=== PATIENT | male | born 1970 | race Caucasian/White ===

== ENCOUNTER 2020-03-14 23:30 | Inpatient (IN) ==
[2020-03-14] MEDS ORDERED: ASPIRIN 325 MG TABLET ONE (23:32)
[2020-03-14] MEDS ORDERED: HEPARIN 5,000 UNIT/1 ML VIAL ONE (23:32)
[2020-03-14] MEDS ORDERED: NITROGLYCERIN 2% OINT 1 INCH/GM PACK TOP ONE (23:32)
[2020-03-14] MEDS ORDERED: HEPARIN 5,000 UNIT/1 ML VIAL IV ONE (23:37)
[2020-03-14] MEDS ORDERED: NITROGLYCERIN 2% OINT 1 INCH/GM PACK TOP STA (23:37)
[2020-03-14] MEDS ORDERED: ASPIRIN EC 325 MG TABLET PO STA (23:37)
[2020-03-14 23:46] LABS: Basophils # 0.1 10*3/uL (0.0-0.2); Basophils % 0.4 % (0.0-0.8); Eosinophils # 0.2 10*3/uL (0.0-0.87); Eosinophils % 1.3 % (0.00-10.9); Hemoglobin 15.8 GM/DL (14.0-18.0); Immature Granulocytes % 2.8 %; Immature Granulocytes Absolute 0.38 #; Lymphocytes # 3.8 10*3/uL (1.4-4.0); Lymphocytes % 27.8 % (21.2-54.2); Mean Corpuscular HGB Conc 34.3 GM/DL (32-36); Mean Corpuscular Volume 90.6 FL (87-102); Mean Platelet Volume 11.2 FL (9.6-12.0); Monocytes % 3.8 % (1.7-12.7); Neutrophils % 63.9 % (38.7-73.9); Platelet Count 176 T/CUMM (130-400); Red Blood Count 5.08 MC/CUMM (3.8-5.5); Red Cell Distribution Width 12.9 % (9.3-17.3); White Blood Count 13.8 T/CUMM (4-12)
[2020-03-14 23:55] LABS: INR 1.1; PT Patient Result 11.7 SECS (9.8-11.9); Partial Thromboplastin Time 23.3 SECS (23.9-33.8)
[2020-03-15] MEDS ORDERED: MIDAZOLAM 2 MG/2 ML VIAL ONE
[2020-03-15] MEDS ORDERED: LIDOCAINE 1% 20 ML VIAL ONE
[2020-03-15] MEDS ORDERED: fentaNYL 100 MCG/2 ML VIAL ONE (00:01)
[2020-03-15 00:28] LABS: Bilirubin,Total 3.3 MG/DL (0.2-1.0); Calcium 8.6 MG/DL (8.5-10.1); Osmolality,Calculated 278.4 MOS/KG (273-304); Total Protein 7.6 G/DL (6.4-8.3)
[2020-03-15 00:32] LABS: Troponin I 0.564 NG/ML (0.00-0.045)
[2020-03-15] MEDS ORDERED: ONDANSETRON 4 MG/2 ML VIAL IV PRN ×2 (01:21)
[2020-03-15] MEDS ORDERED: MAGNESIUM SULF RIDER 2 GM in PREMIX 1 EACH IV PRN (01:21)
[2020-03-15] MEDS ORDERED: MAGNESIUM SULF RIDER 4 GM in PREMIX 1 EACH IV PRN (01:21)
[2020-03-15] MEDS ORDERED: ACETAMINOPHEN 325 MG TABLET PO PRN ×2 (01:21)
[2020-03-15] MEDS ORDERED: SODIUM CHLORIDE 0.9% 1,000 ML IV SCH (01:24)
[2020-03-15] MEDS ORDERED: POTASSIUM CHLORIDE 20 MEQ/15 ML UDCUP PO ONE (01:49)
[2020-03-15] MEDS ORDERED: fentaNYL 100 MCG/2 ML VIAL IV PRN (02:16)
[2020-03-15 02:35] LABS: Risk Ratio 3.67
[2020-03-15 05:28] LABS: CKMB % 5.5 %
[2020-03-15 05:36] LABS: Troponin I 11.9 NG/ML (0.00-0.045)
[2020-03-15 08:04] LABS: Basophils % 0.1 % (0.0-0.8); Hematocrit 43.2 VOL% (42.0-52.0); Hemoglobin 14.8 GM/DL (14.0-18.0); Immature Granulocytes % 0.7 %; Immature Granulocytes Absolute 0.11 #; Mean Corpuscular HGB Conc 34.3 GM/DL (32-36); Mean Corpuscular Volume 89.4 FL (87-102); Mean Platelet Volume 11.2 FL (9.6-12.0); Neutrophils % 88.2 % (38.7-73.9); Platelet Count 167 T/CUMM (130-400); Red Blood Count 4.83 MC/CUMM (3.8-5.5); Red Cell Distribution Width 13.1 % (9.3-17.3); White Blood Count 16.7 T/CUMM (4-12)
[2020-03-15 08:26] LABS: Albumin 3.8 G/DL (3.4-5.0); Bilirubin,Total 2.8 MG/DL (0.2-1.0); Calcium 8.3 MG/DL (8.5-10.1); Osmolality,Calculated 279.7 MOS/KG (273-304); Total Protein 7.2 G/DL (6.4-8.3)
[2020-03-15] MEDS: PANTOPRAZOLE 40 MG TABLET PO SCH (08:32)
[2020-03-15 08:51] LABS: CKMB % 4.8 %
[2020-03-15 08:54] LABS: Troponin I 12.5 NG/ML (0.00-0.045)
[2020-03-15] MEDS: POTASSIUM CHLORIDE 20 MEQ TABLET PO PRN ×5 (09:37→20:58)
[2020-03-15] MEDS: AMBRISENTAN 10 MG PO SCH ×2 (10:36→20:59)
[2020-03-15 13:19] LABS: Barbiturates Screen,Urine Negative (Negative); Benzodiazepines Screen,Urine Positive (Negative); Cannabinoid Screen,Urine Negative (Negative); Opiate Screen,Urine Positive (Negative); Phencyclidine Screen,Urine Negative (Negative)
[2020-03-15] MEDS: SILDENAFIL 20 MG TABLET PO SCH ×2 (15:32→20:58)
[2020-03-15] MEDS ORDERED: TORSEMIDE 20 MG TABLET PO SCH (21:00)
[2020-03-16 06:44] LABS: Basophils % 0.2 % (0.0-0.8); Eosinophils % 0.3 % (0.00-10.9); Hematocrit 39.5 VOL% (42.0-52.0); Hemoglobin 13.3 GM/DL (14.0-18.0); Immature Granulocytes % 0.4 %; Immature Granulocytes Absolute 0.05 #; Lymphocytes % 16.7 % (21.2-54.2); Mean Corpuscular HGB Conc 33.7 GM/DL (32-36); Mean Corpuscular Volume 92.5 FL (87-102); Mean Platelet Volume 11.4 FL (9.6-12.0); Monocytes % 7.9 % (1.7-12.7); Neutrophils % 74.5 % (38.7-73.9); Platelet Count 125 T/CUMM (130-400); Red Blood Count 4.27 MC/CUMM (3.8-5.5); Red Cell Distribution Width 13.5 % (9.3-17.3); White Blood Count 12.1 T/CUMM (4-12)
[2020-03-16 07:00] LABS: Albumin 3.7 G/DL (3.4-5.0); Bilirubin,Total 2.4 MG/DL (0.2-1.0); Calcium 8.2 MG/DL (8.5-10.1); Osmolality,Calculated 278.5 MOS/KG (273-304); Total Protein 6.8 G/DL (6.4-8.3)
[2020-03-16] MEDS: AMBRISENTAN 10 MG PO SCH (08:04)
[2020-03-16] MEDS: POTASSIUM CHLORIDE 20 MEQ TABLET PO SCH (08:04)
[2020-03-16] MEDS: TORSEMIDE 20 MG TABLET PO SCH ×2 (08:04→20:35)
[2020-03-16] MEDS: PANTOPRAZOLE 40 MG TABLET PO SCH (08:04)
[2020-03-16] MEDS: SILDENAFIL 20 MG TABLET PO SCH ×3 (08:04→20:34)
[2020-03-17 06:30] LABS: Calcium 8.4 MG/DL (8.5-10.1); Osmolality,Calculated 278.5 MOS/KG (273-304)
[2020-03-17] MEDS: TORSEMIDE 20 MG TABLET PO SCH ×2 (09:34→21:44)
[2020-03-17] MEDS: PANTOPRAZOLE 40 MG TABLET PO SCH (09:34)
[2020-03-17] MEDS: POTASSIUM CHLORIDE 20 MEQ TABLET PO SCH ×3 (09:34→21:44)
[2020-03-17] MEDS: AMBRISENTAN 10 MG PO SCH (09:35)
[2020-03-17] MEDS: SILDENAFIL 20 MG TABLET PO SCH ×3 (09:35→21:44)
[2020-03-18 06:36] LABS: Calcium 8.4 MG/DL (8.5-10.1); Osmolality,Calculated 275.5 MOS/KG (273-304)
[2020-03-18] MEDS ORDERED: MAGNESIUM SULF RIDER 2 GM in PREMIX 1 EACH IV ONE (07:01)
[2020-03-18] MEDS ORDERED: POTASSIUM CHLORIDE 20 MEQ TABLET PO ONE (07:01)
[2020-03-18] MEDS: POTASSIUM CHLORIDE 20 MEQ TABLET PO SCH (09:11)
[2020-03-18] MEDS: PANTOPRAZOLE 40 MG TABLET PO SCH (09:11)
[2020-03-18] MEDS: TORSEMIDE 20 MG TABLET PO SCH (09:11)
[2020-03-18] MEDS: AMBRISENTAN 10 MG PO SCH (09:12)
[2020-03-18] MEDS: SILDENAFIL 20 MG TABLET PO SCH (09:12)
[2020-03-18 15:40] VITALS: BP 110/60
== END 2020-03-18 15:45 | disposition hospice, home (50) | DRG 287 ==
LOC: N.ED 23:30 → N.EDINP 23:30 → N.ICU 03-15 00:05 → SUPCPDRO 03-15 01:21 → N.TELEN 03-16 10:53
PROVIDERS: ADMIT Internal Medicine Cardiovascular Disease; ATTEND Internal Medicine Cardiovascular Disease
PROC: CLCCHCL (ICD-10-PCS; 2020-03-15)

== ENCOUNTER 2022-02-01 18:29 | Observation (INO) ==
[2022-02-01 19:06] LABS: Basophils % 0.1 % (0.0-0.8); Eosinophils # 0.2 10*3/uL (0.0-0.87); Eosinophils % 2.2 % (0.00-10.9); Hematocrit 43.4 VOL% (42.0-52.0); Hemoglobin 14.8 GM/DL (14.0-18.0); Immature Granulocytes % 0.3 %; Immature Granulocytes Absolute 0.02 #; Lymphocytes # 1.6 10*3/uL (1.4-4.0); Mean Corpuscular HGB Conc 34.1 GM/DL (32-36); Mean Platelet Volume 10.3 FL (9.6-12.0); Monocytes # 0.6 10*3/uL (0.11-0.8); Monocytes % 7.3 % (1.7-12.7); Neutrophils % 70.1 % (38.7-73.9); Platelet Count 185 T/CUMM (130-400); Red Blood Count 4.82 MC/CUMM (3.8-5.5); White Blood Count 7.9 T/CUMM (4-12)
[2022-02-01] MEDS ORDERED: ACETAMINOPHEN 500 MG TABLET PO STA (19:10)
[2022-02-01 19:30] LABS: Albumin 4.1 G/DL (3.4-5.0); Bilirubin,Total 2.2 MG/DL (0.20-1.00); Calcium 10.4 MG/DL (8.5-10.1); Osmolality,Calculated 280.5 MOS/KG (273-304); Potassium 3.4 MMOL/L (3.5-5.1)
[2022-02-01] MEDS ORDERED: GLUCAGON 1 MG VIAL IM PRN (20:06)
[2022-02-01] MEDS ORDERED: ONDANSETRON 4 MG/2 ML VIAL IV PRN (20:06)
[2022-02-01] MEDS ORDERED: SIMETHICONE CHEW 125 MG TABLET PO PRN (20:06)
[2022-02-01] MEDS ORDERED: ACETAMINOPHEN 325 MG TABLET PO PRN (20:06)
[2022-02-01] MEDS ORDERED: DEXTROSE 10% 250 ML BAG IV PRN (20:19)
[2022-02-01] MEDS ORDERED: POTASSIUM CHLORIDE 20 MEQ TABLET PO STA (20:58)
[2022-02-01] MEDS: DOCUSATE SODIUM 100 MG CAPSULE PO SCH (21:18)
[2022-02-01] MEDS: ENOXAPARIN 40 MG/0.4 ML SYRINGE SUBCUT SCH (21:23)
[2022-02-02 01:50] LABS: Basophils % 0.3 % (0.0-0.8); Eosinophils # 0.1 10*3/uL (0.0-0.87); Eosinophils % 1.5 % (0.00-10.9); Hematocrit 39.5 VOL% (42.0-52.0); Hemoglobin 13.4 GM/DL (14.0-18.0); Immature Granulocytes % 0.1 %; Immature Granulocytes Absolute 0.01 #; Lymphocytes # 2.2 10*3/uL (1.4-4.0); Lymphocytes % 27.9 % (21.2-54.2); Mean Corpuscular HGB Conc 33.9 GM/DL (32-36); Mean Corpuscular Volume 90.8 FL (87-102); Mean Platelet Volume 10.7 FL (9.6-12.0); Monocytes # 0.7 10*3/uL (0.11-0.8); Monocytes % 8.5 % (1.7-12.7); Neutrophils % 61.7 % (38.7-73.9); Platelet Count 174 T/CUMM (130-400); Red Blood Count 4.35 MC/CUMM (3.8-5.5); Red Cell Distribution Width 13.1 % (9.3-17.3); White Blood Count 7.8 T/CUMM (4-12)
[2022-02-02 01:59] LABS: PT Patient Result 10.8 SECS (10.1-12.1); Partial Thromboplastin Time 29.1 SECS (23.7-32.9)
[2022-02-02 02:14] LABS: Calcium 9.7 MG/DL (8.5-10.1); Osmolality,Calculated 280.5 MOS/KG (273-304); Potassium 3.5 MMOL/L (3.5-5.1); Risk Ratio 4.18; Thyroid Stimulating Hormone 5.64 uIU/ml (0.358-3.74); VLDL Cholesterol 39.6 MG/DL
[2022-02-02 07:41] LABS: Barbiturates Screen,Urine Negative (Negative); Benzodiazepines Screen,Urine Negative (Negative); Cannabinoid Screen,Urine Negative (Negative); Opiate Screen,Urine Negative (Negative); Phencyclidine Screen,Urine Negative (Negative)
[2022-02-02] MEDS ORDERED: AMIODARONE INJ 150 MG in DEXTROSE 5% 100 ML IV ONE (08:18)
[2022-02-02] MEDS ORDERED: POTASSIUM CHLORIDE 20 MEQ TABLET PO ONE (08:20)
[2022-02-02] MEDS ORDERED: AMIODARONE INJ 450 MG in DEXTROSE 5% 241 ML IV SCH (08:30)
[2022-02-02] MEDS: DOCUSATE SODIUM 100 MG CAPSULE PO SCH ×2 (09:41→20:49)
[2022-02-02] MEDS: ASPIRIN EC 325 MG TABLET PO SCH (09:41)
[2022-02-02] MEDS: ASCORBIC ACID 500 MG TABLET PO SCH ×2 (09:42→20:49)
[2022-02-02] MEDS: PANTOPRAZOLE 40 MG TABLET PO SCH (09:42)
[2022-02-02] MEDS: AMIODARONE INJ 450 MG in DEXTROSE 5% 241 ML IV SCH (16:47)
[2022-02-02] MEDS: ENOXAPARIN 40 MG/0.4 ML SYRINGE SUBCUT SCH (20:49)
[2022-02-02] MEDS: SILDENAFIL 20 MG TABLET PO SCH (20:58)
[2022-02-03 06:15] LABS: Basophils % 0.3 % (0.0-0.8); Eosinophils # 0.1 10*3/uL (0.0-0.87); Eosinophils % 1.8 % (0.00-10.9); Hematocrit 38.1 VOL% (42.0-52.0); Hemoglobin 12.7 GM/DL (14.0-18.0); Immature Granulocytes % 0.5 %; Immature Granulocytes Absolute 0.03 #; Lymphocytes # 1.8 10*3/uL (1.4-4.0); Lymphocytes % 26.8 % (21.2-54.2); Mean Corpuscular HGB Conc 33.3 GM/DL (32-36); Mean Corpuscular Volume 93.2 FL (87-102); Monocytes # 0.5 10*3/uL (0.11-0.8); Neutrophils % 62.6 % (38.7-73.9); Platelet Count 149 T/CUMM (130-400); Red Blood Count 4.09 MC/CUMM (3.8-5.5); Red Cell Distribution Width 13.3 % (9.3-17.3); White Blood Count 6.5 T/CUMM (4-12)
[2022-02-03 06:35] LABS: Calcium 8.9 MG/DL (8.5-10.1); Osmolality,Calculated 281.1 MOS/KG (273-304); Potassium 3.8 MMOL/L (3.5-5.1)
[2022-02-03] MEDS: AMIODARONE INJ 450 MG in DEXTROSE 5% 241 ML IV SCH (06:45)
[2022-02-03] MEDS ORDERED: AMIODARONE 200 MG TABLET PO SCH (09:00)
[2022-02-03] MEDS ORDERED: AMBRISENTAN 10 MG PO SCH (09:00)
[2022-02-03] MEDS ORDERED: POTASSIUM CHLORIDE 20 MEQ TABLET PO SCH (09:21)
[2022-02-03] MEDS ORDERED: TORSEMIDE 20 MG TABLET PO SCH (09:21)
[2022-02-03] MEDS: SILDENAFIL 20 MG TABLET PO SCH (09:48)
[2022-02-03] MEDS: ASPIRIN EC 325 MG TABLET PO SCH (09:48)
[2022-02-03] MEDS: DOCUSATE SODIUM 100 MG CAPSULE PO SCH (09:48)
[2022-02-03] MEDS: PANTOPRAZOLE 40 MG TABLET PO SCH (09:48)
[2022-02-03] MEDS: ASCORBIC ACID 500 MG TABLET PO SCH (09:48)
[2022-02-03 11:34] VITALS: BP 99/63
== END 2022-02-03 11:46 | disposition home health service (06) ==
LOC: N.EDINP 18:29 → N.ED 18:29 → SUATTDRO 20:06 → N.EDINP 21:22 → N.TELES 22:32
PROVIDERS: ADMIT Hospitalist; ATTEND Internal Medicine Geriatric Medicine

== ENCOUNTER 2022-02-19 22:05 | Inpatient (IN) ==
[2022-02-19] MEDS ORDERED: AMIODARONE INJ 450 MG in DEXTROSE 5% 241 ML IV SCH (23:45)
[2022-02-20 00:29] LABS: Albumin 3.5 G/DL (3.4-5.0); Basophils % 0.2 % (0.0-0.8); Bilirubin,Total 1.6 MG/DL (0.20-1.00); Calcium 9.2 MG/DL (8.5-10.1); Eosinophils # 0.1 10*3/uL (0.0-0.87); Eosinophils % 0.5 % (0.00-10.9); Hematocrit 40.5 VOL% (42.0-52.0); Immature Granulocytes % 0.4 %; Immature Granulocytes Absolute 0.05 #; Lymphocytes # 1.1 10*3/uL (1.4-4.0); Mean Corpuscular HGB Conc 34.6 GM/DL (32-36); Mean Corpuscular Volume 90.4 FL (87-102); Mean Platelet Volume 11.2 FL (9.6-12.0); Monocytes # 0.8 10*3/uL (0.11-0.8); Monocytes % 6.7 % (1.7-12.7); Neutrophils % 83.2 % (38.7-73.9); Osmolality,Calculated 280.4 MOS/KG (273-304); Platelet Count 155 T/CUMM (130-400); Red Blood Count 4.48 MC/CUMM (3.8-5.5); Red Cell Distribution Width 13.3 % (9.3-17.3); Total Protein 6.8 G/DL (6.4-8.2)
[2022-02-20] MEDS ORDERED: ALBUTEROL 2.5 MG/3 ML NEB RESP TX PRN (02:44)
[2022-02-20] MEDS ORDERED: MORPHINE 2 MG/1 ML SYRINGE IV PRN (02:45)
[2022-02-20] MEDS ORDERED: ONDANSETRON 4 MG/2 ML VIAL IV PRN (02:45)
[2022-02-20] MEDS ORDERED: ACETAMINOPHEN 325 MG TABLET PO PRN (02:45)
[2022-02-20] MEDS ORDERED: POTASSIUM CHLORIDE 20 MEQ TABLET PO ONE (02:52)
[2022-02-20] MEDS: SODIUM CHLORIDE 0.9% 1,000 ML IV SCH ×2 (05:00→18:25)
[2022-02-20] MEDS: SPIRONOLACTONE 25 MG TABLET PO SCH (08:25)
[2022-02-20] MEDS: ASPIRIN EC 81 MG TABLET PO SCH (08:25)
[2022-02-20] MEDS: AMIODARONE 200 MG TABLET PO SCH ×2 (08:25→20:40)
[2022-02-20] MEDS: SILDENAFIL 20 MG TABLET PO SCH ×3 (08:25→20:41)
[2022-02-20] MEDS: POTASSIUM CHLORIDE 20 MEQ TABLET PO SCH ×2 (08:27→20:40)
[2022-02-20] MEDS ORDERED: SPIRONOLACTONE 25 MG TABLET PO SCH (09:00)
[2022-02-20] MEDS ORDERED: METOPROLOL TARTRATE 25 MG TABLET PO SCH (09:30)
[2022-02-21 04:17] LABS: Calcium 8.7 MG/DL (8.5-10.1); Osmolality,Calculated 288.7 MOS/KG (273-304); Potassium 3.6 MMOL/L (3.5-5.1)
[2022-02-21] MEDS: SILDENAFIL 20 MG TABLET PO SCH (08:39)
[2022-02-21] MEDS: ASPIRIN EC 81 MG TABLET PO SCH (08:39)
[2022-02-21] MEDS: SPIRONOLACTONE 25 MG TABLET PO SCH (08:39)
[2022-02-21] MEDS: AMIODARONE 200 MG TABLET PO SCH (08:40)
[2022-02-21] MEDS: POTASSIUM CHLORIDE 20 MEQ TABLET PO SCH (08:40)
[2022-02-21] MEDS ORDERED: PROPRANOLOL 40 MG TABLET PO SCH (09:00)
== END 2022-02-21 09:10 | disposition home or self-care (01) | DRG 309 ==
LOC: N.ICU 23:00
PROVIDERS: ADMIT Internal Medicine; ATTEND Internal Medicine